=== PATIENT | male | born 1960 | race African-American/Black ===

== ENCOUNTER → 2016-10-27 | Outpatient (CLI) | payer MEDICARE, MEDICAID ==
[~2016-10-27] MED LIST: AMLO1TAB39 PO; ATEN-42 PO; BENA20TA3 PO; METF500T4 PO; PRED5TAB48 PO; REGADENOSON 0.4 MG/5 ML IV ONE; SULF15DR26 EACHEYE; TRIA1TAB5 PO
== END | disposition home or self-care (01) ==
LOC: NM 07:15
PROVIDERS: ATTEND Internal Medicine Cardiovascular Disease
DX: Z01.818 Encounter for other preprocedural examination (principal); I10 Essential (primary) hypertension; E11.9 Type 2 diabetes mellitus without complications; R07.9 Chest pain, unspecified; R06.02 Shortness of breath
CPT/HCPCS: 78452; 93017; A9500; J2785